=== PATIENT | female | born 1970 | race Caucasian/White ===

== ENCOUNTER 2016-07-06 18:55 | Emergency (ER) | payer MEDICAID ==
[~2016-07-06] VITALS: Ht 157.5 cm; Wt 136.1 kg
[~2016-07-06 18:55] MED LIST: BACTRIM DS 800/1 TAB PO; EFFEXOR PO; EFFEXOR100 MG PO; LOPRESSOR25 MG PO; METFORMIN HCL500 MG PO; Metoprolol Tartrate PO; QUETIAPINE FUM100 M1 PO; SEROQUEL200 MG PO; XANAX2 MG PO
[2016-07-06 19:02] VITALS: BP 160/100
--- NOTE | 2016-07-06 21:23 | NUR ---
BIBA C/O LOWER BACK PAIN RADIATING TO HER GROIN , WITH 2 HERNIA WHICH CAUSING IT SINCE YESTERDAY.
[2016-07-06] MEDS: KETOROLAC 60 MG/2 ML VIAL IM ONE ×2 (22:28→22:37)
--- NOTE | 2016-07-06 22:35 | NUR ---
TAKEN FOR CT SCAN
--- NOTE | 2016-07-06 22:42 | NUR ---
PT REFUSED MEDICATION TORADOL FOR LOWER BACK PAIN DESPITE EXPLAINING THE RISKS AND BENEFITS OF IT. DR. RAE NOTIFIED.
--- NOTE | 2016-07-06 23:00 | NUR ---
Note [email or web address] in EDM - 07/06/16 at 2306 by [email or web address] Patient discharged with v/s stable. Written and verbal after care instructions given and explained. Patient alert, oriented and verbalized understanding of instructions. Ambulatory with steady gait. All questions addressed prior to discharge. ID band removed. Patient advised to follow up with PMD. Rx of TRAMADOL HYDROCHLORIDE 50MG PO given. Patient educated on indication of medication including possible reaction and side effects. Opportunity to ask questions provided and answered.
--- NOTE | 2016-07-06 23:00 | NUR ---
PT REFUSED TO SIGNED DISCHARGED PAPERS DESPITE EXPLAINING THE RISKS AND BENEFITS OF IT. PT STATES THAT SHE'S FINE. ERMD NITIFIED.
[2016-07-06 23:04] VITALS: BP 139/84
== END 2016-07-06 23:00 | disposition home or self-care (01) ==
LOC: MED 18:55
DX: K42.9 Umbilical hernia without obstruction or gangrene (principal); J45.909 Unspecified asthma, uncomplicated; E11.9 Type 2 diabetes mellitus without complications; I10 Essential (primary) hypertension